=== PATIENT | female | born 1995 | race Caucasian/White ===

== ENCOUNTER 2017-12-01 12:24 | Emergency (ER) | payer OTHER ==
[~2017-12-01] VITALS: Ht 152.4 cm; Wt 53.5 kg
[2017-12-01 12:24] VITALS: TEMP 37; Ht 152.4 cm; Wt 53.5 kg
--- NOTE | 2017-12-01 13:04 | EMERGENCY ROOM VISIT NOTE ---
History Report prepared by Nguyen: Stephany Meyer Under the Supervision of: Dr. Benji Patel D.O. First contact with patient: 12:35 Chief Complaint: URINARY SYMPTOMS Stated Complaint: UTI, BURNING, PAIN ON L SIDE Nursing Triage Summary: Recurrent UTIs. History of Present Illness The patient is a 22 year old female who presents to the Emergency Room with complaints of intermittent recurrent UTIs beginning in July. The patient reports increased urination frequency and urinary burning. The patient states she went to a urologist and is scheduled to have scope done in January. She went to [facility] last Sunday for the same symptoms where she had a CT done which was unremarkable. She reports she has been several different antibiotics since her symptoms began in July. The patient was on Cefdinir 300 mg for 9 days, Nitrofurantoin twice for five days each time, hyoscyamine, cephalexin 500 mg twice, and Phenazopyridine three different times. She denies any back pain, pain in legs, swelling in her legs. The patient is currently on her menstrual period. She denies any tobacco or alcohol use. Source of History: patient Onset: July Position: other (generalized) Quality: other (recurrent UTIs) Timing: intermittent Associated Symptoms: + urinary symptoms, No back pain Review of Systems See HPI for pertinent positives & negatives. A total of 10 systems reviewed and were otherwise negative. Past Medical & Surgical Medical Problems: (1) H/O recurrent urinary tract infection Family History Patient reports no known family medical history. Social History Smoking Status: Never Smoker Smokeless Tobacco Use: No Alcohol Use: none Drug Use: none Housing Status: lives with family Current/Historical Medications Scheduled Pentosan Polysulfate Sodium (Elmiron), 100 MG PO BID Allergies Coded Allergies: No Known Allergies (Unverified , 12/01/17) Physical Exam Vital Signs Date Time Temp Pulse Resp B/P (MAP) Pulse Ox O2 Delivery O2 Flow Rate FiO2 12/01/17 14:34 75 18 114/84 97 Room Air 12/01/17 13:24 75 20 95/58 98 Room Air 12/01/17 12:24 37.0 80 18 105/67 100 Room Air Physical Exam GENERAL: Patient is awake, alert, and in no acute distress. Patient is resting comfortably and showing no signs of anxiety EYES: The conjunctivae are clear. The pupils are round and reactive. EARS, NOSE, MOUTH AND THROAT: The nose is without any evidence of any deformity. Mucous membranes are moist tongue is midline NECK: The neck is nontender and supple. RESPIRATORY: Normal respiratory effort is noted there is no evidence of wheezing rhonchi or rales CARDIOVASCULAR: Regular rate and rhythm noted there no murmurs rubs or gallops normal S1 normal S2 GASTROINTESTINAL: The abdomen is soft. Bowel sounds are present in all quadrants. Lower abdominal tenderness to palpation, no guarding or rigidity. MUSCULOSKELETAL/EXTREMITIES: There is no evidence of gross deformity full range of motion is noted in the hips and shoulders SKIN: There is no obvious evidence of any rash. There are no petechiae, pallor or cyanosis noted. NEUROLOGIC: Patient is awake alert and oriented x3 strength is symmetric patellar reflexes are 2+ bilaterally Medical Decision & Procedures Laboratory Results 12/01/17 13:07 Red Blood Count 4.52, Mean Corpuscular Volume 89.2, Mean Corpuscular Hemoglobin 31.9, Mean Corpuscular Hemoglobin Concent 35.7, Mean Platelet Volume 9.8, Neutrophils (%) (Auto) 59.7, Lymphocytes (%) (Auto) 29.2, Monocytes (%) (Auto) 8.1, Eosinophils (%) (Auto) 2.2, Basophils (%) (Auto) 0.6, Neutrophils # (Auto) 3.02, Lymphocytes # (Auto) 1.48, Monocytes # (Auto) 0.41, Eosinophils # (Auto) 0.11, Basophils # (Auto) 0.03 12/01/17 13:07 Test 12/01/17 13:07 12/01/17 13:15 White Blood Count 5.06 K/uL (4.8-10.8) Red Blood Count 4.52 M/uL (4.2-5.4) Hemoglobin 14.4 g/dL (12.0-16.0) Hematocrit 40.3 % (37-47) Mean Corpuscular Volume 89.2 fL (80-100) Mean Corpuscular Hemoglobin 31.9 pg (25-34) Mean Corpuscular Hemoglobin Concent 35.7 g/dl (32-36) Platelet Count 151 K/uL (130-400) Mean Platelet Volume 9.8 fL (7.4-10.4) Neutrophils (%) (Auto) 59.7 % Lymphocytes (%) (Auto) 29.2 % Monocytes (%) (Auto) 8.1 % Eosinophils (%) (Auto) 2.2 % Basophils (%) (Auto) 0.6 % Neutrophils # (Auto) 3.02 K/uL (1.4-6.5) Lymphocytes # (Auto) 1.48 K/uL (1.2-3.4) Monocytes # (Auto) 0.41 K/uL (0.11-0.59) Eosinophils # (Auto) 0.11 K/uL (0-0.5) Basophils # (Auto) 0.03 K/uL (0-0.2) RDW Standard Deviation 40.1 fL (36.4-46.3) RDW Coefficient of Variation 12.4 % (11.5-14.5) Immature Granulocyte % (Auto) 0.2 % Immature Granulocyte # (Auto) 0.01 K/uL (0.00-0.02) Anion Gap 6.0 mmol/L (3-11) Est Creatinine Clear Calc Drug Dose 80.9 ml/min Estimated GFR () 125.3 Estimated GFR (Non- 108.1 BUN/Creatinine Ratio 14.0 (10-20) Calcium Level 9.2 mg/dl (8.5-10.1) Total Bilirubin 0.5 mg/dl (0.2-1) Direct Bilirubin 0.2 mg/dl (0-0.2) Aspartate Amino Transf (AST/SGOT) 11 U/L (15-37) Alanine Aminotransferase (ALT/SGPT) 24 U/L (12-78) Alkaline Phosphatase 43 U/L (45-117) Total Protein 7.9 gm/dl (6.4-8.2) Albumin 5.1 gm/dl (3.4-5.0) Lipase 170 U/L (73-393) Human Chorionic Gonadotropin, Qual NEG (NEG) Urine Color YELLOW Urine Appearance CLEAR (CLEAR) Urine pH 7.0 (4.5-7.5) Urine Specific [place] 1.003 (1.000-1.030) Urine Protein NEG (NEG) Urine Glucose (UA) NEG (NEG) Urine Ketones NEG (NEG) Urine Occult Blood NEG (NEG) Urine Nitrite NEG (NEG) Urine Bilirubin NEG (NEG) Urine Urobilinogen NEG (NEG) Urine Leukocyte Esterase NEG (NEG) Laboratory results per my review. ED Course 1237: The patient was evaluated in room A12B. A complete history and physical examination were performed. 1426: I updated the patient on her test results. The behavioral health case manager will try to get the patient an appointment with a urologist before January. 1521: The behavioral health case manager was able to get a an appointment at Dr. Galeano office. 1534: Upon reevaluation, the patient is resting comfortably. I discussed the results and treatment plan with her. She verbalized agreement of the treatment plan. The patient was discharged home. Medical Decision Differential diagnosis: Etiologies such as renal colic, appendicitis, diverticulitis, mesenteric ischemia, aortic pathology, infections, inflammatory bowel disease, PUD, biliary pathology, UTI, as well as others were entertained. Nursing notes reviewed. The patient is a 22-year-old female who presented to the emergency department for dysuria and frequency. The patient has had ongoing dysuria and frequency since July 2017. She has been on multiple antibiotics as well as multiple medications for bladder spasm. She has been seen by a urologist but is scheduled for a cystoscopy upcoming. The patient presented to our emergency department today because she wanted another opinion and possibly a sooner referral. I discussed patient's laboratory results with her. It is possible the patient has interstitial cystitis and will likely require a cystoscopy. I discussed her case with the emergency department behavioral health case manager. We were able to make a referral for a sooner urologic appointment. The patient was encouraged to call to schedule this appointment but also try to move her other appointment up with her primary urologist. Otherwise I encouraged her to continue all medications as prescribed and drink plenty of liquids and return to the emergency department immediately if symptoms change worsen or the need arises. Medication Reconcilliation Current Medication List: was personally reviewed by me Blood Pressure Screening Patient's blood pressure: Normal blood pressure Impression Primary Impression: Cystitis Scribe Attestation The scribe's documentation has been prepared under my direction and personally reviewed by me in its entirety. I confirm that the note above accurately reflects all work, treatment, procedures, and medical decision making performed by me. Departure Information Dispostion Home / Self-Care Referrals Doug Youngblood M.D. (PCP) Forms HOME CARE DOCUMENTATION FORM, IMPORTANT VISIT INFORMATION Patient Instructions ED UTI Cystitis Female, My [facility] Additional Instructions Follow up with the Urologist as scheduled. Drink plenty of liquids. Continue all medications as prescribed.
[2017-12-01] MEDS ORDERED: PENT100C6 PO (13:06)
[2017-12-01 13:18] LABS: BASO % 0.6 %; BASO ABS # 0.03 K/uL (0-0.2); EOS % 2.2 %; EOS ABS # 0.11 K/uL (0-0.5); HEMATOCRIT 40.3 % (37-47); HEMOGLOBIN 14.4 g/dL (12.0-16.0); IG# 0.01 K/uL (0.00-0.02); LYMPH % 29.2 %; LYMPH ABS # 1.48 K/uL (1.2-3.4); MEAN CELL VOLUME 89.2 fL (80-100); MEAN CORPUSCULAR HEMOGLOBIN 31.9 pg (25-34); MEAN CORPUSCULAR HGB CONC 35.7 g/dl (32-36); MEAN PLATELET VOLUME 9.8 fL (7.4-10.4); MONO % 8.1 %; MONO ABS # 0.41 K/uL (0.11-0.59); NEUT % 59.7 %; NEUT ABS # 3.02 K/uL (1.4-6.5); PLATELET COUNT 151 K/uL (130-400); RED CELL DISTRIBUTION WIDTH CV 12.4 % (11.5-14.5); RED CELL DISTRIBUTION WIDTH SD 40.1 fL (36.4-46.3); WHITE BLOOD COUNT 5.06 K/uL (4.8-10.8)
[2017-12-01 13:37] LABS: ALBUMIN 5.1 gm/dl (3.4-5.0); CALCIUM 9.2 mg/dl (8.5-10.1); CREATININE 0.77 mg/dl (0.60-1.20); POTASSIUM 3.6 mmol/L (3.5-5.1)
[2017-12-01 13:39] LABS: TOTAL PROTEIN 7.9 gm/dl (6.4-8.2)
[2017-12-01 14:34] VITALS: BP 114/84; PULSE 75; O2SAT 97
== END 2017-12-01 15:45 | disposition home or self-care (01) ==
LOC: C.EDB 12:25 → C.EDA 15:45
DX: N30.90 Cystitis, unspecified without hematuria (principal); Z87.440 Personal history of urinary (tract) infections; Z79.899 Other long term (current) drug therapy